=== PATIENT | male | born 1985 | race Caucasian/White ===

== ENCOUNTER 2017-07-07 16:47 | Emergency (ER) | payer SELFPAY ==
[2017-07-07] MEDS: HYDROmorphONE 1 MG/5 ML IV SYRINGE IV (17:52)
[2017-07-07] MEDS: ONDANSETRON 4 MG INJ IV (17:52)
[2017-07-07] MEDS: HYDROCODONE/APAP (10/325) TAB PO (19:17)
== END 2017-07-07 19:24 | disposition home or self-care (01) ==
LOC: E/R 16:47
DX: S43.004A Unspecified dislocation of right shoulder joint, initial encounter (principal); W01.0XXA Fall on same level from slipping, tripping and stumbling without subsequent striking against object, initial encounter; Y92.9 Unspecified place or not applicable
CPT/HCPCS: 29105; 73030-RT; 96374; 96375; 99284-25